=== PATIENT | female | born 1970 | race Caucasian/White ===

== ENCOUNTER 2016-12-02 15:24 | Emergency (ER) | payer BC ==
[2016-12-02] MEDS ORDERED: Sodium Chloride 0.9% 10 ML Syringe FLUSH PRN (15:59)
[2016-12-02] MEDS ORDERED: HYDROmorphone 1 MG/ML Syringe IVPUSH ONE (16:00)
[2016-12-02] MEDS ORDERED: Ondansetron 4 MG/2 ML SDV IV ONE (16:00)
[2016-12-02] MEDS ORDERED: Ketorolac 30 MG/ML SDV IVPUSH ONE (16:00)
--- NOTE | 2016-12-02 18:15 | EDM.PDOC ---
Scribed by Anu Hanna 12/02/16 [id number] for Cezar Pritchett MD ED HPI GENERAL MEDICAL PROBLEM - General Chief Complaint: Genitourinary Problem Stated Complaint: FROM CLINIC Time Seen by Provider: 12/02/16 15:49 Source of Information: Reports: Patient, RN, RN Notes Reviewed History Limitations: Reports: No Limitations - History of Present Illness INITIAL COMMENTS - FREE TEXT/NARRATIVE: She was sent from clinic by primary care doctor with report of severe left flank pain consistent with past kidney stone episodes. Complains of nausea. Admits to blood tinged urine. Location: Reports: Other (flank) Quality: Reports: Ache Severity: Severe Improves with: Reports: None Worsens with: Reports: None Associated Symptoms: Reports: No Other Symptoms Left Flank Pain Score (Numeric/FACES): 7 - Related Data Allergies Allergy/AdvReac Type Severity Reaction Status Date / Time ciprofloxacin [From Cipro] AdvReac Diarrhea Verified 12/02/16 15:29 Home Meds: Home Meds Hydrochlorothiazide 25 mg PO DAILY 12/02/16 [History] Levothyroxine Sodium [Levothyroxine Sodium] 88 mcg PO DAILY 12/02/16 [History] Potassium 0 mg PO 12/02/16 [History] Past Medical History HEENT History: Reports: None Cardiovascular History: Reports: None Respiratory History: Reports: None Gastrointestinal History: Reports: None Genitourinary History: Reports: Renal Calculus 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 Musculoskeletal History: Reports: Fracture Neurological History: Reports: None Psychiatric History: Reports: None Endocrine/Metabolic History: Reports: Hypothyroidism Hematologic History: Reports: None Immunologic History: Reports: None Oncologic (Cancer) History: Reports: None Dermatologic History: Reports: None - Infectious Disease History Infectious Disease History: Reports: None - Past Surgical History HEENT Surgical History: Reports: None Cardiovascular Surgical History: Reports: None Respiratory Surgical History: Reports: None Other GI Surgeries/Procedures: splenectomy Female Surgical History: Reports: None Endocrine Surgical History: Reports: None Neurological Surgical History: Reports: None Musculoskeletal Surgical History: Reports: None Dermatological Surgical History: Reports: None Social & Family History - Family History Family Medical History: Noncontributory - Tobacco Use Smoking Status *Q: Never Smoker Second Hand Smoke Exposure: No - Caffeine Use Caffeine Use: Reports: None - Recreational Drug Use Recreational Drug Use: No ED ROS GENERAL - Review of Systems Review Of Systems: ROS reveals no pertinent complaints other than HPI. ED EXAM, RENAL/ - Physical Exam Exam: See Below Exam Limited By: No Limitations General Appearance: Alert, WD/WN, No Apparent Distress, Other (uncomfortable appearing) Nose: Normal Inspection Throat/Mouth: Normal Inspection Head: Atraumatic, Normocephalic Neck: Normal Inspection, Supple, Non-Tender, Full Range of Motion Respiratory/Chest: No Respiratory Distress, Lungs Clear, Normal Breath Sounds, No Accessory Muscle Use, Chest Non-Tender Cardiovascular: Normal Peripheral Pulses, Regular Rate, Rhythm, No Edema, No Gallop, No JVD, No Murmur, No Rub GI/Abdominal: Normal Bowel Sounds, Soft, Non-Tender, No Organomegaly, No Distention, No Abnormal Bruit (Female) Exam: Deferred Rectal (Female) Exam: Deferred Back Exam: Full Range of Motion, CVA Tenderness (L) (mild). No: CVA Tenderness (R) Extremities: Normal Inspection Neurological: Alert, Oriented, CN II-XII Intact, Normal Cognition, Normal Gait, No Motor/Sensory Deficits Psychiatric: Normal Affect, Normal Mood Skin Exam: Warm, Dry, Intact, Normal Color, No Rash Course - Vital Signs Last Recorded V/S: Last Vital Signs Temp 36.9 C 12/02/16 15:31 Pulse 89 12/02/16 15:31 Resp 18 12/02/16 15:31 BP 123/71 12/02/16 15:31 Pulse Ox 95 12/02/16 15:31 - Orders/Labs/Meds Orders: Active Orders 24 hr Category Date Time Status Peripheral IV Care [RC] . DIRECTED Care 12/02/16 16:00 Active Abdomen Pelvis wo Cont [CT] Urgent Exams 12/02/16 16:38 Taken Sodium Chloride 0.9% [Saline Flush] Med 12/02/16 15:59 Active 10 ml FLUSH ASDIRECTED PRN Peripheral IV Insertion Adult [OM.PC] Stat Oth 12/02/16 15:59 Ordered Medication Orders Sodium Chloride (Saline Flush) 10 ml FLUSH ASDIRECTED PRN PRN Reason: Keep Vein Open Last Admin: 12/02/16 16:27 Dose: 10 ml Labs: Laboratory Tests 08/09/17 08/09/17 08/09/17 Range/Units 15:39 15:39 15:54 WBC 10.9 H (5.0-10.0) 10^3/uL RBC 4.57 (4.2-5.4) 10^6/uL Hgb 14.9 (12.0-16.0) g/dL Hct 44.1 (37.0-47.0) % MCV 96.5 (80-100) fL MCH 32.6 (27.0-34.0) pg MCHC 33.8 (33.0-35.0) g/dL Plt Count 410 (150-450) 10^3/uL Neut % (Auto) 74.9 (42.2-75.2) % Lymph % (Auto) 11.5 L (20.5-50.1) % [place] % (Auto) 11.8 H (2-8) % Eos % (Auto) 1.3 (1.0-3.0) % Baso % (Auto) 0.5 (0.0-1.0) % Sodium (135-145) mmol/L Potassium (3.6-5.0) mmol/L Chloride (101-111) mmol/L Carbon Dioxide (21.0-31.0) mmol/L Anion Gap BUN (7-18) mg/dL Creatinine (0.6-1.3) mg/dL Est Cr Clr Drug Dosing mL/min Estimated GFR (MDRD) BUN/Creatinine Ratio Glucose (74-105) mg/dL Calcium (8.4-10.2) mg/dl Total Bilirubin (0.2-1.0) mg/dL AST (10-42) IU/L ALT (10-60) IU/L Alkaline Phosphatase (42-121) IU/L Total Protein (6.7-8.2) g/dl Albumin (3.2-5.5) g/dl Globulin Albumin/Globulin Ratio Urine Color Yellow (YELLOW) Urine Appearance Slightly cloudy (CLEAR) Urine pH 7.0 (5.0-9.0) Ur Specific [place] 1.020 (1.005-1.030) Urine Protein 100 H (NEGATIVE) Urine Glucose (UA) Negative (NEGATIVE) Urine Ketones Negative (NEGATIVE) Urine Occult Blood Moderate H (NEGATIVE) Urine Nitrite Negative (NEGATIVE) Urine Bilirubin Negative (NEGATIVE) Urine Urobilinogen 0.2 (0.2-1.0) mg/dL Ur Leukocyte Esterase Trace H (NEGATIVE) Urine RBC 20-30 H /HPF Urine WBC 0-5 (0-5/HPF) /HPF Ur Epithelial Cells Moderate H /HPF Amorphous Sediment Moderate H (0/HPF) /HPF Urine Bacteria Few (0-FEW/HPF) /HPF Urine Mucus Many H /LPF Urine HCG, Qual Negative 12/02/16 Range/Units 15:54 WBC (5.0-10.0) 10^3/uL RBC (4.2-5.4) 10^6/uL Hgb (12.0-16.0) g/dL Hct (37.0-47.0) % MCV (80-100) fL MCH (27.0-34.0) pg MCHC (33.0-35.0) g/dL Plt Count (150-450) 10^3/uL Neut % (Auto) (42.2-75.2) % Lymph % (Auto) (20.5-50.1) % [place] % (Auto) (2-8) % Eos % (Auto) (1.0-3.0) % Baso % (Auto) (0.0-1.0) % Sodium 136 (135-145) mmol/L Potassium 3.9 (3.6-5.0) mmol/L Chloride 95 L (101-111) mmol/L Carbon Dioxide 28.0 (21.0-31.0) mmol/L Anion Gap 16.9 BUN 10 (7-18) mg/dL Creatinine 1.0 (0.6-1.3) mg/dL Est Cr Clr Drug Dosing 70.91 mL/min Estimated GFR (MDRD) 60 BUN/Creatinine Ratio 10.00 Glucose 112 H (74-105) mg/dL Calcium 9.3 (8.4-10.2) mg/dl Total Bilirubin 0.9 (0.2-1.0) mg/dL AST 44 H (10-42) IU/L ALT 25 (10-60) IU/L Alkaline Phosphatase 53 (42-121) IU/L Total Protein 8.1 (6.7-8.2) g/dl Albumin 4.4 (3.2-5.5) g/dl Globulin 3.7 Albumin/Globulin Ratio 1.19 Urine Color (YELLOW) Urine Appearance (CLEAR) Urine pH (5.0-9.0) Ur Specific [place] (1.005-1.030) Urine Protein (NEGATIVE) Urine Glucose (UA) (NEGATIVE) Urine Ketones (NEGATIVE) Urine Occult Blood (NEGATIVE) Urine Nitrite (NEGATIVE) Urine Bilirubin (NEGATIVE) Urine Urobilinogen (0.2-1.0) mg/dL Ur Leukocyte Esterase (NEGATIVE) Urine RBC /HPF Urine WBC (0-5/HPF) /HPF Ur Epithelial Cells /HPF Amorphous Sediment (0/HPF) /HPF Urine Bacteria (0-FEW/HPF) /HPF Urine Mucus /LPF Urine HCG, Qual Meds: Medications Generic Name Dose Route Start Last Admin Trade Name Freq PRN Reason Stop Dose Admin Sodium Chloride 10 ml 12/02/16 15:59 12/02/16 16:27 Saline Flush FLUSH 10 ml ASDIRECTED PRN Administration Keep Vein Open Discontinued Medications Generic Name Dose Route Start Last Admin Trade Name Freq PRN Reason Stop Dose Admin Hydromorphone HCl 0.5 mg 12/02/16 16:00 12/02/16 16:26 Dilaudid IVPUSH 12/02/16 16:01 0.5 mg ONETIME ONE Administration Ketorolac Tromethamine 30 mg 12/02/16 16:00 12/02/16 16:26 Toradol IVPUSH 12/02/16 16:01 30 mg ONETIME ONE Administration Ondansetron HCl 4 mg 12/02/16 16:00 12/02/16 16:26 Zofran IV 12/02/16 16:01 4 mg ONETIME ONE Administration - Radiology Interpretation Free Text/Narrative:: CT abdomen and pelvis: Left distal ureteral stone. See rad report. Departure - Departure Time of Disposition: 17:50 Disposition: Home, Self-Care 01 Condition: Fair Clinical Impression: Kidney stone - Discharge Information Instructions: Kidney Stones, [id number] Forms: ED Department Discharge Additional Instructions: RX: Percocet 5mg/325mg. RX: Zofran 4mg. RX: Cephalexin 500mg. Drink plenty of water. Black mitchell juice may help reduce your uric acid levels. Follow up with your urologist at first available appointment. Return to ER if worse at any time. - My Orders Last 24 Hours: My Active Orders 12/02/16 15:59 Sodium Chloride 0.9% [Saline Flush] 10 ml FLUSH ASDIRECTED PRN Peripheral IV Insertion Adult [OM.PC] Stat 12/02/16 16:00 Peripheral IV Care [RC] . DIRECTED 12/02/16 16:38 Abdomen Pelvis wo Cont [CT] Urgent - Assessment/Plan Last 24 Hours: My Active Orders 12/02/16 15:59 Sodium Chloride 0.9% [Saline Flush] 10 ml FLUSH ASDIRECTED PRN Peripheral IV Insertion Adult [OM.PC] Stat 12/02/16 16:00 Peripheral IV Care [RC] . DIRECTED 12/02/16 16:38 Abdomen Pelvis wo Cont [CT] Urgent I have read and agree with the documentation that has been completed regarding this visit. By signing this record, I attest that the documentation was completed in my physical presence and is an accurate record of the encounter.
--- NOTE | 2016-12-02 18:20 | CT ---
Clinical history: 46-year-old 156 pound female history of "kidney stones" (CT report 29 January 2012 "bilateral nephrolithiasis, caliectasis left kidney and diverticulosis colon"), left flank pain and hematuria. TECHNIQUE: Volume acquisition of data emergency unenhanced CT scan of the abdomen and pelvis (kidney s/ureters/bladder) obtained without oral or IV contrast while patient was lying supine on the [email or web address] s multi slice scanner [place], [place]. All data archived in the PACS system for storage, reformatting and study. Interpretation: Abnormal. Asymmetric mild pyelocaliectasis left kidney and what appears to be a tiny, less than 1 mm diameter calcification, lodged in the distal left ureter that was not evident on previous exam 29 January 2012 . No current signs of nephrolithiasis and no evidence of obstructive uropathy on the right. Numerous diverticula identified in the sigmoid colon without current signs of associated inflammatio n. Gallbladder, unenhanced liver, spleen, stomach and pancreas unremarkable. Normal adrenal glands. CONCLUSION: Tiny incompletely obstructing distal left ureterolith. Diverticulosis colon.
[2016-12-02 18:33] VITALS: BP 98/66
== END 2016-12-02 18:00 | disposition home or self-care (01) ==
LOC: DL.ED 15:24
DX: N20.2 Calculus of kidney with calculus of ureter (principal); E03.9 Hypothyroidism, unspecified; Z88.1 Allergy status to other antibiotic agents; Z79.899 Other long term (current) drug therapy
CPT/HCPCS: 36415; 74176; 80053; 81001; 81025; 85025; 96374; 96375; 99284; J1170; J1885; J2405; J7050

== ENCOUNTER 2016-12-04 12:40 | Emergency (ER) | payer BC ==
--- NOTE | 2016-12-04 13:03 | EDM.PDOC ---
ED HPI GENERAL MEDICAL PROBLEM - General Chief Complaint: Genitourinary Problem Stated Complaint: KIDNEY STONES? [phone] Time Seen by Provider: 12/04/16 13:03 Source of Information: Reports: Patient, Family, Old Records, RN, RN Notes Reviewed History Limitations: Reports: No Limitations - History of Present Illness INITIAL COMMENTS - FREE TEXT/NARRATIVE: Arrives by POV with c/o continued pain from a kidney stone that was diagnosed by CT scan here 2 days ago. Denies fever or chills. Report nausea and vomiting and has been unable to keep down her pain medications. She has an appointment with her hose maker next week. 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 Medication(s) Left Flank Pain Score (Numeric/FACES): 7 - Related Data Allergies Allergy/AdvReac Type Severity Reaction Status Date / Time ciprofloxacin [From Cipro] AdvReac Diarrhea Verified 12/04/16 12:53 Home Meds: Home Meds Hydrochlorothiazide 25 mg PO DAILY 12/02/16 [History] Levothyroxine Sodium [Levothyroxine Sodium] 88 mcg PO DAILY 12/02/16 [History] Potassium 0 mg PO DAILY 12/02/16 [History] Past Medical History HEENT History: Reports: None Cardiovascular History: Reports: None Respiratory History: Reports: None Gastrointestinal History: Reports: None Genitourinary History: Reports: Renal Calculus 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 Musculoskeletal History: Reports: Fracture Neurological History: Reports: None Psychiatric History: Reports: None Endocrine/Metabolic History: Reports: Hypothyroidism Hematologic History: Reports: None Immunologic History: Reports: None Oncologic (Cancer) History: Reports: None Dermatologic History: Reports: None - Infectious Disease History Infectious Disease History: Reports: None - Past Surgical History HEENT Surgical History: Reports: None Cardiovascular Surgical History: Reports: None Respiratory Surgical History: Reports: None Other GI Surgeries/Procedures: splenectomy Female Surgical History: Reports: None Endocrine Surgical History: Reports: None Neurological Surgical History: Reports: None Musculoskeletal Surgical History: Reports: None Dermatological Surgical History: Reports: None Social & Family History - Family History Family Medical History: Noncontributory - Tobacco Use Smoking Status *Q: Never Smoker Second Hand Smoke Exposure: No - Caffeine Use Caffeine Use: Reports: None - Recreational Drug Use Recreational Drug Use: No - Living Situation & Occupation Living situation: Reports: , with Spouse ED ROS GENERAL - Review of Systems Review Of Systems: ROS reveals no pertinent complaints other than HPI. ED EXAM, RENAL/ - Physical Exam Exam: See Below Exam Limited By: No Limitations General Appearance: Alert, WD/WN, No Apparent Distress, Other (uncomfortable appearing) Nose: Normal Inspection Throat/Mouth: Normal Inspection, Normal Lips, Normal Teeth, Normal Gums, Normal Oropharynx, Normal Voice, No Airway Compromise Head: Atraumatic, Normocephalic Neck: Normal Inspection, Supple, Non-Tender, Full Range of Motion Respiratory/Chest: No Respiratory Distress, Lungs Clear, Normal Breath Sounds, No Accessory Muscle Use, Chest Non-Tender Cardiovascular: Normal Peripheral Pulses, Regular Rate, Rhythm, No Edema, No Gallop, No JVD, No Murmur, No Rub GI/Abdominal: Normal Bowel Sounds, Soft, Non-Tender, No Distention, No Mass (Female) Exam: Deferred Rectal (Female) Exam: Deferred Back Exam: Normal Inspection, Full Range of Motion. No: CVA Tenderness (L), CVA Tenderness (R) Extremities: Normal Inspection Neurological: Alert, Oriented, CN II-XII Intact, Normal Cognition, Normal Gait, No Motor/Sensory Deficits Psychiatric: Normal Affect, Normal Mood Skin Exam: Warm, Dry, Intact, Normal Color, No Rash Course - Vital Signs Last Recorded V/S: Last Vital Signs Temp 37.2 C 12/04/16 15:08 Pulse 93 12/04/16 15:08 Resp 16 12/04/16 15:08 BP 92/58 L 12/04/16 15:08 Pulse Ox 92 L 12/04/16 15:08 - Orders/Labs/Meds Orders: Active Orders 24 hr Category Date Time Status Peripheral IV Care [RC] . DIRECTED Care 12/04/16 13:04 Active Sodium Chloride 0.9% [Saline Flush] Med 12/04/16 13:04 Active 10 ml FLUSH ASDIRECTED PRN Peripheral IV Insertion Adult [OM.PC] Stat Oth 12/04/16 13:03 Ordered Medication Orders Sodium Chloride (Saline Flush) 10 ml FLUSH ASDIRECTED PRN PRN Reason: Keep Vein Open Last Admin: 12/04/16 13:28 Dose: 10 ml Labs: Laboratory Tests 12/04/16 12/04/16 12/04/16 Range/Units 13:16 13:16 13:40 WBC 11.6 H (5.0-10.0) 10^3/uL RBC 4.52 (4.2-5.4) 10^6/uL Hgb 14.9 (12.0-16.0) g/dL Hct 43.6 (37.0-47.0) % MCV 96.5 (80-100) fL MCH 33.0 (27.0-34.0) pg MCHC 34.2 (33.0-35.0) g/dL Plt Count 287 (150-450) 10^3/uL Neut % (Auto) 78.1 H (42.2-75.2) % Lymph % (Auto) 11.6 L (20.5-50.1) % [place] % (Auto) 7.8 (2-8) % Eos % (Auto) 2.1 (1.0-3.0) % Baso % (Auto) 0.4 (0.0-1.0) % Add Manual Diff Yes Neutrophils % (Manual) 60 % Band Neutrophils % 17 % Lymphocytes % (Manual) 16 % Monocytes % (Manual) 5 % Eosinophils % (Manual) 2 % Sodium 136 (135-145) mmol/L Potassium 3.6 (3.6-5.0) mmol/L Chloride 94 L (101-111) mmol/L Carbon Dioxide 29.0 (21.0-31.0) mmol/L Anion Gap 16.6 BUN 18 (7-18) mg/dL Creatinine 1.1 (0.6-1.3) mg/dL Est Cr Clr Drug Dosing 64.46 mL/min Estimated GFR (MDRD) 53 BUN/Creatinine Ratio 16.36 Glucose 81 (74-105) mg/dL Uric Acid 5.2 (2.6-7.2) mg/dL Calcium 9.2 (8.4-10.2) mg/dl Total Bilirubin 0.8 (0.2-1.0) mg/dL AST 53 H (10-42) IU/L ALT 46 (10-60) IU/L Alkaline Phosphatase 57 (42-121) IU/L Total Protein 7.9 (6.7-8.2) g/dl Albumin 4.2 (3.2-5.5) g/dl Globulin 3.7 Albumin/Globulin Ratio 1.14 Urine Color (YELLOW) Urine Appearance (CLEAR) Urine pH (5.0-9.0) Ur Specific [place] (1.005-1.030) Urine Protein (NEGATIVE) Urine Glucose (UA) (NEGATIVE) Urine Ketones (NEGATIVE) Urine Occult Blood (NEGATIVE) Urine Nitrite (NEGATIVE) Urine Bilirubin (NEGATIVE) Urine Urobilinogen (0.2-1.0) mg/dL Ur Leukocyte Esterase (NEGATIVE) Urine RBC /HPF Urine WBC (0-5/HPF) /HPF Ur Epithelial Cells /HPF Calcium Oxalate Crystal /HPF Urine Bacteria (0-FEW/HPF) /HPF Urine Mucus /LPF Urine HCG, Qual Urine Opiates Screen Positive H (NEGATIVE) Ur Oxycodone Screen Positive H (NEGATIVE) Urine Methadone Screen Negative (NEGATIVE) Ur Barbiturates Screen Negative (NEGATIVE) U Tricyclic Antidepress Positive H (NEGATIVE) Ur Phencyclidine Scrn Negative (NEGATIVE) Ur Amphetamine Screen Negative (NEGATIVE) U Methamphetamines Scrn Negative (NEGATIVE) Urine MDMA Screen Negative (NEGATIVE) U Benzodiazepines Scrn Negative (NEGATIVE) Urine Cocaine Screen Negative (NEGATIVE) U Marijuana (THC) Screen Negative (NEGATIVE) 12/04/16 12/04/16 Range/Units 13:40 13:40 WBC (5.0-10.0) 10^3/uL RBC (4.2-5.4) 10^6/uL Hgb (12.0-16.0) g/dL Hct (37.0-47.0) % MCV (80-100) fL MCH (27.0-34.0) pg MCHC (33.0-35.0) g/dL Plt Count (150-450) 10^3/uL Neut % (Auto) (42.2-75.2) % Lymph % (Auto) (20.5-50.1) % [place] % (Auto) (2-8) % Eos % (Auto) (1.0-3.0) % Baso % (Auto) (0.0-1.0) % Add Manual Diff Neutrophils % (Manual) % Band Neutrophils % % Lymphocytes % (Manual) % Monocytes % (Manual) % Eosinophils % (Manual) % Sodium (135-145) mmol/L Potassium (3.6-5.0) mmol/L Chloride (101-111) mmol/L Carbon Dioxide (21.0-31.0) mmol/L Anion Gap BUN (7-18) mg/dL Creatinine (0.6-1.3) mg/dL Est Cr Clr Drug Dosing mL/min Estimated GFR (MDRD) BUN/Creatinine Ratio Glucose (74-105) mg/dL Uric Acid (2.6-7.2) mg/dL Calcium (8.4-10.2) mg/dl Total Bilirubin (0.2-1.0) mg/dL AST (10-42) IU/L ALT (10-60) IU/L Alkaline Phosphatase (42-121) IU/L Total Protein (6.7-8.2) g/dl Albumin (3.2-5.5) g/dl Globulin Albumin/Globulin Ratio Urine Color Dark yellow (YELLOW) Urine Appearance Cloudy (CLEAR) Urine pH 5.5 (5.0-9.0) Ur Specific [place] 1.020 (1.005-1.030) Urine Protein 100 H (NEGATIVE) Urine Glucose (UA) Negative (NEGATIVE) Urine Ketones 80 H (NEGATIVE) Urine Occult Blood Moderate H (NEGATIVE) Urine Nitrite Negative (NEGATIVE) Urine Bilirubin Moderate H (NEGATIVE) Urine Urobilinogen 0.2 (0.2-1.0) mg/dL Ur Leukocyte Esterase Small H (NEGATIVE) Urine RBC 0-5 /HPF Urine WBC 5-10 H (0-5/HPF) /HPF Ur Epithelial Cells Few /HPF Calcium Oxalate Crystal Few H /HPF Urine Bacteria Few (0-FEW/HPF) /HPF Urine Mucus Rare /LPF Urine HCG, Qual Negative Urine Opiates Screen (NEGATIVE) Ur Oxycodone Screen (NEGATIVE) Urine Methadone Screen (NEGATIVE) Ur Barbiturates Screen (NEGATIVE) U Tricyclic Antidepress (NEGATIVE) Ur Phencyclidine Scrn (NEGATIVE) Ur Amphetamine Screen (NEGATIVE) U Methamphetamines Scrn (NEGATIVE) Urine MDMA Screen (NEGATIVE) U Benzodiazepines Scrn (NEGATIVE) Urine Cocaine Screen (NEGATIVE) U Marijuana (THC) Screen (NEGATIVE) Meds: Medications Generic Name Dose Route Start Last Admin Trade Name Freq PRN Reason Stop Dose Admin Sodium Chloride 10 ml 12/04/16 13:04 12/04/16 13:28 Saline Flush FLUSH 10 ml ASDIRECTED PRN Administration Keep Vein Open Discontinued Medications Generic Name Dose Route Start Last Admin Trade Name Karl PRN Reason Stop Dose Admin Hydromorphone HCl 1 mg 12/04/16 13:04 12/04/16 13:20 Dilaudid IVPUSH 12/04/16 13:05 1 mg ONETIME ONE Administration Hydromorphone HCl 1 mg 12/04/16 14:58 12/04/16 15:03 Dilaudid IVPUSH 12/04/16 14:59 1 mg ONETIME ONE Administration Sodium Chloride 1,000 mls @ 999 mls/hr 12/04/16 13:04 12/04/16 13:22 Normal Saline IV 12/04/16 14:04 999 mls/hr .BOLUS ONE Administration Sodium Chloride 1,000 mls @ 999 mls/hr 12/04/16 14:01 12/04/16 14:06 Normal Saline IV 12/04/16 15:01 999 mls/hr .BOLUS ONE Administration Ketorolac Tromethamine 30 mg 12/04/16 13:04 12/04/16 13:22 Toradol IVPUSH 12/04/16 13:05 30 mg ONETIME ONE Administration Ondansetron HCl 4 mg 12/04/16 13:04 12/04/16 13:21 Zofran IV 12/04/16 13:05 4 mg ONETIME ONE Administration Promethazine HCl 25 mg 12/04/16 14:58 12/04/16 15:02 Phenergan PO 12/04/16 14:59 25 mg ONETIME ONE Administration Departure - Departure Time of Disposition: 15:36 Disposition: Home, Self-Care 01 Condition: Fair Clinical Impression: Kidney stone, Dehydration - Discharge Information Instructions: Kidney Stones, [id number], Pain Medicine Instructions, Easy-to- Read, Dehydration, Adult, [id number] Forms: ED Department Discharge Additional Instructions: Rx: Flomax 0.4mg Rx: Promethazine 25mg rectal suppository *Do not drive while under the influence of this medication. Continue other medications as previously prescribed. Follow up with Dr. Carnes as scheduled. Return to ER if you develop a fever, or become worse at any time. - My Orders Last 24 Hours: My Active Orders 12/04/16 13:03 Peripheral IV Insertion Adult [OM.PC] Stat 12/04/16 13:04 Peripheral IV Care [RC] . DIRECTED Sodium Chloride 0.9% [Saline Flush] 10 ml FLUSH ASDIRECTED PRN - Assessment/Plan Last 24 Hours: My Active Orders 12/04/16 13:03 Peripheral IV Insertion Adult [OM.PC] Stat 12/04/16 13:04 Peripheral IV Care [RC] . DIRECTED Sodium Chloride 0.9% [Saline Flush] 10 ml FLUSH ASDIRECTED PRN
[2016-12-04] MEDS ORDERED: Ondansetron 4 MG/2 ML SDV IV ONE (13:04)
[2016-12-04] MEDS ORDERED: Sodium Chloride 0.9% 10 ML Syringe FLUSH PRN (13:04)
[2016-12-04] MEDS ORDERED: Sodium Chloride 0.9% 1,000 ML IV ONE ×2 (13:04→14:01)
[2016-12-04] MEDS ORDERED: HYDROmorphone 1 MG/ML Syringe IVPUSH ONE ×2 (13:04→14:58)
[2016-12-04] MEDS ORDERED: Ketorolac 30 MG/ML SDV IVPUSH ONE (13:04)
[2016-12-04] MEDS ORDERED: Promethazine 25 MG Tab PO ONE (14:58)
[2016-12-04 15:09] VITALS: BP 92/58
[2016-12-04] MEDS ORDERED: Tamsulosin 0.4 MG Cap.ER PO ONE (15:44)
== END 2016-12-04 15:59 | disposition home or self-care (01) ==
LOC: DL.ED 12:40
DX: N20.0 Calculus of kidney (principal); E03.9 Hypothyroidism, unspecified; E86.0 Dehydration; Z79.899 Other long term (current) drug therapy; Z88.1 Allergy status to other antibiotic agents
CPT/HCPCS: 36415; 80053; 80305; 81001; 81025; 84550; 85025; 96361; 96374; 96375; 96376; 99284; A9270; J1170; J1885; J2405; J7030; J7050